=== PATIENT | female | born 1975 | race Caucasian/White ===

== ENCOUNTER 2024-06-18 15:40 | Outpatient (CLI) | payer BC, SELFPAY ==
[2024-06-20 20:23] LABS: HPV Source Cervix; HPV, High Risk by TMA Not Detected
== END 2024-06-18 15:41 | disposition home or self-care (01) ==
PROVIDERS: PCP Family Medicine; Visit Provider Obstetrics & Gynecology
DX: R68.82 Decreased libido (principal); Z87.42 Personal history of other diseases of the female genital tract; Z12.4 Encounter for screening for malignant neoplasm of cervix; R39.15 Urgency of urination
CPT/HCPCS: 87624; 87625; 88141; 88142

== ENCOUNTER 2025-01-14 08:57 | Outpatient (CLI) | payer BC, SELFPAY | END 2025-01-14 08:58 | disposition home or self-care (01) | LOC: NFLDREF 08:58 | PROVIDERS: PCP Family Medicine; Visit Provider Obstetrics & Gynecology | DX: R61 Generalized hyperhidrosis (principal) | CPT/HCPCS: 84443 ==